=== PATIENT | male | born 1985 | race Caucasian/White ===

== ENCOUNTER 2017-10-18 17:23 | Emergency (ER) | payer OTHER ==
[2017-10-18 17:35] VITALS: RESP 20
[2017-10-18] MEDS ORDERED: Sodium Chloride 0.9% 1,000 ML IV ONE (18:16)
--- NOTE | 2017-10-18 18:21 | C.PDOC ---
History Of Present Illness <Jeanne Marin - Last Filed: 10/19/17 00:56> <Nguyễn Baez - Last Filed: 10/19/17 03:01> 31 year old male with Hx of depression and anxiety is brought to the ED by his sister for evaluation of SI. Patient reports he saw a psychiatrist years ago for his depression and anxiety but was not able to move forward due to his ETOH abuse. Patient admits to drinking half a paint of vodka everyday to cope with his depression and anxiety. Patient's sister became aware of his symptoms and decided to bring him in for evaluation, she also reports patient has been vomiting for the last 2 weeks, not eating or going to work as well. Patient denies fever, nausea, abdominal pain, dysuria, hematuria, back pain, dizziness, CP, SOB. While on the ED patient is biting down on mouth guard. (Jeanne Marin) History Per: Patient, Family History/Exam Limitations: no limitations Onset/Duration Of Symptoms: Days Current Symptoms Are (Timing): Still Present Location Of Pain/Discomfort: Diffuse Radiation Of Pain To:: None Quality Of Discomfort: "Pain" Associated Symptoms: Vomiting Alleviating Factors: None Recent travel outside of the [place]: No Additional History Per: Patient <Jeanne Marin - Last Filed: 10/19/17 00:56> <Nguyễn Baez - Last Filed: 10/19/17 03:01> Time Seen by Provider: 10/18/17 18:03 Chief Complaint (Nursing): GI Problem Past Medical History Reviewed: Historical Data, Nursing Documentation, Vital Signs - Medical History PMH: Anxiety, Depression Surgical History: No Surg Hx Family History: States: Unknown Family Hx - Social History Hx Alcohol Use: Yes Hx Substance Use: No - Immunization History Hx Tetanus Toxoid Vaccination: No Hx Influenza Vaccination: No Hx Pneumococcal Vaccination: No <Jeanne Marin - Last Filed: 10/19/17 00:56> Vital Signs: Last Vital Signs Temp 98.8 F 10/19/17 02:43 Pulse 86 10/19/17 02:43 Resp 20 10/19/17 02:43 BP 130/81 10/19/17 02:43 Pulse Ox 99 10/19/17 02:43 Review Of Systems Constitutional: Negative for: Fever, Chills Cardiovascular: Negative for: Chest Pain, Palpitations Respiratory: Negative for: Cough, Shortness of Breath Gastrointestinal: Positive for: Vomiting. Negative for: Nausea, Abdominal Pain Genitourinary: Negative for: Dysuria, Hematuria Neurological: Negative for: Weakness, Numbness Psych: Positive for: Anxiety, Depression, Suicidal ideation <TaniaJeanne A - Last Filed: 10/19/17 00:56> Physical Exam - Physical Exam Appears: Non-toxic, Other (Blunt affect, anxious, biting on a mouth guard) Skin: Normal Color, Warm, Dry Head: Atraumatic, Normacephalic Nose: No Discharge, No Deformity Oral Mucosa: Moist Neck: Normal ROM, Supple Chest: Symmetrical Cardiovascular: Rhythm Regular, No Murmur Respiratory: Normal Breath Sounds, No Rales, No Rhonchi, No Wheezing Gastrointestinal/Abdominal: Soft, No Tenderness, No Distention, No Rebound Extremity: Normal ROM, No Pedal Edema, No Calf Tenderness, No Swelling Neurological/Psych: Oriented x3, Normal Speech, Normal Cognition <Jeanne Marin - Last Filed: 10/19/17 00:56> ED Course And Treatment - Laboratory Results Result Diagrams: 10/18/17 18:59 10/18/17 18:59 O2 Sat by Pulse Oximetry: 99 (On RA) Pulse Ox Interpretation: Normal <Jeanne Marin - Last Filed: 10/19/17 00:56> - Laboratory Results Result Diagrams: 10/18/17 18:59 10/18/17 18:59 Pulse Ox Interpretation: Normal Progress Note: pt does not want to be hospitalized. states he has an out of state detox center to go today. Was cleared by dr guzman <Nguyễn Baez - Last Filed: 10/19/17 03:01> Medical Decision Making <Jeanne Marin - Last Filed: 10/19/17 00:56> <Nguyễn Baez - Last Filed: 10/19/17 03:01> Medical Decision Making: Plan: * EKG * CXR * Blood work * Librium 50 mg PO * Pepcid 20 mg IVP * IV fluids * Zofran 4 mh IVP * UA Consulted with psych. EKG shows NSR at 97bpm with normal intervals and no st changes. Cxray negative 10:32 Patient is anemic with elevated lfts and lipase. CT shows 1. No CT evidence of pancreatitis or complications related to pancreatitis. 2. Incidental/non-acute findings are described above Patient is now tolerating po and symptoms resovled. Patient is medically cleared and pending psych. Psych eval pending due to elevated blood alcohol level 1:00AM Will sign out to Tarah to follow-up psych recommendations and reevaluate. ( Jeanne Marin) Disposition - Disposition Disposition Time: 01:00 <Jeanne Marin - Last Filed: 10/19/17 00:56> Counseled Patient/Family Regarding: Studies Performed, Diagnosis, Need For Followup <Nguyễn Baez - Last Filed: 10/19/17 03:01> - Disposition Referrals: [facility] [Outside] Disposition: HOME/ ROUTINE Condition: FAIR Additional Instructions: Pleas return if symptoms recur Instructions: Alcohol Intoxication (DC), Anxiety (ED) Forms: [employer] (Slovenian) - Clinical Impression Clinical Impression: Alcohol abuse, Alcohol intoxication, Anxiety - Scribe Statement The provider has reviewed the documentation as recorded by the Scribe <Jeanne Marin - Last Filed: 10/19/17 00:56> <Nguyễn Baez - Last Filed: 10/19/17 03:01> - Scribe Statement Silvio Aaron All medical record entries made by the Scribe were at my direction and personally dictated by me. I have reviewed the chart and agree that the record accurately reflects my personal performance of the history, physical exam, medical decision making, and the department course for this patient. I have also personally directed, reviewed, and agree with the discharge instructions and disposition. (Jeanne Marin)
[2017-10-18] MEDS ORDERED: Sodium Chloride 0.9% 1,000 ML ONE (19:04)
[2017-10-18 19:28] LABS: ALB/GLOB RATIO 1.5 (1.0-2.1); ALKALINE PHOSPHATASE 85 U/L (38-126); ALT/SGPT 208 U/L (21-72); AST/SGOT 449 U/L (17-59); BILIRUBIN,TOTAL 0.9 mg/dL (0.2-1.3); BLOOD UREA NITROGEN 6 mg/dL (9-20); CALCIUM 8.8 mg/dl (8.6-10.4); CARBON DIOXIDE 25 mmol/L (22-30); CHLORIDE 99 mmol/L (98-107); GFR AFRICAN-AMERICAN > 60; GLUCOSE,RANDOM 114 mg/dL (75-110); MAGNESIUM 1.8 mg/dL (1.6-2.3); PHOSPHOROUS 3.5 mg/dL (2.5-4.5); SODIUM 143 mmol/L (132-148); TOTAL PROTEIN 7.9 g/dL (6.3-8.3)
[2017-10-18 19:32] LABS: RBC URINE 1 /hpf (0-3); URINE BACTERIA RARE (<OCC); URINE BILIRUBIN NEGATIVE (NEGATIVE); URINE BLOOD NEGATIVE (NEGATIVE); URINE GLUCOSE (UA) NORMAL (Normal); URINE KETONE 1+ mg/dL (NEGATIVE); URINE LEUKOCYTE ESTERASE NEG Leu/uL (Negative); URINE PROTEIN 2+ mg/dL (NEGATIVE); WBC URINE 1 /hpf (0-5)
[2017-10-18 19:34] LABS: URINE COLOR YELLOW (YELLOW)
[2017-10-18 19:39] LABS: HEMATOCRIT 30.2 % (35.0-51.0); MEAN CELL VOLUME 68.2 fL (80.0-94.0); MEAN CORPUSCULAR HEMOGLOBIN 20.8 pg (27.0-31.0); MEAN CORPUSCULAR HGB CONC 30.6 g/dL (33.0-37.0); MEAN PLATELET VOLUME 7.2 fL (7.2-11.7); RED CELL DISTRIBUTION WIDTH 19.6 % (11.5-14.5)
[2017-10-18 19:43] LABS: ALCOHOL SERUM 300 mg/dl (0-10)
[2017-10-18 20:12] LABS: LYMPH # 0.9 K/uL (1.0-4.3); MONO # 0.5 K/uL (0.0-0.8)
[2017-10-18 20:13] LABS: EOS # 0.1 K/uL (0.0-0.7)
[2017-10-18] MEDS ORDERED: Iodixanol 320 MG/ML 100 ML BOTTLE IV ONE (20:41)
--- NOTE | 2017-10-18 22:26 | CT ---
EXAM: CT Abdomen and Pelvis With Intravenous Contrast CLINICAL HISTORY: 31 years old, male; Pain and signs and symptoms and abnormal findings; Abnormal lab test; Elevated lipase; Vomiting; Abdominal pain; Generalized; Additional info: Vomiting, abdominal pain, elevated lipase TECHNIQUE: Axial computed tomography images of the abdomen and pelvis with intravenous contrast. All CT scans at this facility use one or more dose reduction techniques, viz.: automated exposure control; ma/kV adjustment per patient size (including targeted exams where dose is matched to indication; i.e. head); or iterative reconstruction technique. Coronal and sagittal reformatted images were created and reviewed. CONTRAST: 100 mL of visipaque 320 administered intravenously. COMPARISON: No relevant prior studies available. FINDINGS: Limitations: Motion artifact - mild. Lower thorax: Minimal atelectasis. ABDOMEN: Liver: Fatty infiltration. Gallbladder and bile ducts: No calcified stones. No ductal dilation. Pancreas: No definite peripancreatic stranding. No pancreatic necrosis. No peripancreatic collection. Spleen: No splenomegaly. Adrenals: No mass. Kidneys and ureters: No mass. No hydronephrosis. Stomach and bowel: No definite mural thickening. No obstruction. Appendix: Normal caliber. No inflammation. PELVIS: Bladder: Unremarkable. Reproductive: Unremarkable as visualized. ABDOMEN and PELVIS: Intraperitoneal space: No significant fluid collection. No free air. Bones/joints: No acute fracture. Soft tissues: Unremarkable. Vasculature: Patent splenic artery and vein. No aneurysm. Lymph nodes: No pathologically enlarged lymph nodes. IMPRESSION: 1. No CT evidence of pancreatitis or complications related to pancreatitis. 2. Incidental/non-acute findings are described above.
[2017-10-19 00:58] VITALS: O2SAT 99
[2017-10-19 02:51] VITALS: BP 130/81; PULSE 86; TEMP 98.8
--- NOTE | 2017-10-19 08:24 | RAD ---
HISTORY: psych COMPARISON: None available. TECHNIQUE: Chest, one view. FINDINGS: LUNGS: No focal consolidation. Please note that chest x-ray has limited sensitivity for the detection of pulmonary masses. PLEURA: No significant pleural effusion identified. No definite pneumothorax . CARDIOVASCULAR: The cardiomediastinal silhouette appears within normal limits of size. OSSEOUS STRUCTURES: Degenerative changes of the spine. VISUALIZED UPPER ABDOMEN: Unremarkable. OTHER FINDINGS: None. IMPRESSION: No focal consolidation, significant pleural effusion, or definite pneumothorax identified.
--- NOTE | 2017-10-22 19:17 | CARD ---
APPROVED REPORT EKG Measurement Heart [id number] <Conclusion> Normal sinus rhythm Normal ECG
== END 2017-10-19 04:35 | disposition home or self-care (01) ==
LOC: C.ER 17:23
DX: F10.129 Alcohol abuse with intoxication, unspecified (principal); Y90.8 Blood alcohol level of 240 mg/100 ml or more; F41.9 Anxiety disorder, unspecified
CPT/HCPCS: 71010; 74177; 80053; 80320; 80324; 80345; 80346; 80349; 80353; 80358; 80361; 81001; 83690; 83735; 83992; 84100; 85025; 93005; 96361; 96374; 96375; 96376; 99285; J2060; J2405; J2765; J7040; Q9967